=== PATIENT | female | born 1980 | race Hispanic/Latino ===

== ENCOUNTER 2019-12-06 10:19 | Outpatient (RCR) | payer MEDICAID, SELFPAY ==
[2019-11-07 10:32] VITALS: BMI 26.9
== END 2019-12-10 23:59 ==
LOC: NS 10:19
PROVIDERS: Visit Provider Internal Medicine
DX: Z71.3 Dietary counseling and surveillance (principal); E66.3 Overweight
CPT/HCPCS: 97802

== ENCOUNTER 2019-12-27 08:38 | Outpatient (RCR) | payer MEDICAID, SELFPAY | END 2020-01-09 23:59 | LOC: NS 08:38 | PROVIDERS: Visit Provider Internal Medicine | DX: Z71.3 Dietary counseling and surveillance (principal); E66.3 Overweight | CPT/HCPCS: 97803 ==

== ENCOUNTER 2020-01-10 08:59 | Outpatient (RCR) | payer MEDICAID, SELFPAY | END 2020-02-09 23:59 | LOC: NS 08:59 | PROVIDERS: Visit Provider Internal Medicine | DX: Z71.3 Dietary counseling and surveillance (principal); E66.3 Overweight | CPT/HCPCS: 97803 ==

== ENCOUNTER 2020-02-27 08:30 | Outpatient (RCR) | payer MEDICAID, SELFPAY | END 2020-03-11 23:59 | LOC: NS 08:30 | PROVIDERS: Visit Provider Internal Medicine | DX: Z71.3 Dietary counseling and surveillance (principal); E66.3 Overweight | CPT/HCPCS: 97803 ==

== ENCOUNTER 2020-04-03 14:22 | Outpatient (RCR) | payer MEDICAID, SELFPAY | END 2020-04-08 23:59 | LOC: NS 14:22 | PROVIDERS: Visit Provider Internal Medicine | DX: Z71.3 Dietary counseling and surveillance (principal); E66.3 Overweight | CPT/HCPCS: 97803 ==

== ENCOUNTER 2020-05-01 08:30 | Outpatient (RCR) | payer MEDICAID, SELFPAY | END 2020-05-09 23:59 | LOC: NS 08:30 | PROVIDERS: Visit Provider Internal Medicine | DX: Z71.3 Dietary counseling and surveillance (principal); E66.3 Overweight | CPT/HCPCS: 97803 ==

== ENCOUNTER 2020-05-22 08:53 | Outpatient (RCR) | payer MEDICAID, SELFPAY | END 2020-06-08 23:59 | LOC: NS 08:53 | PROVIDERS: Visit Provider Internal Medicine | DX: Z71.3 Dietary counseling and surveillance (principal); E66.3 Overweight; Z68.27 Body mass index [BMI] 27.0-27.9, adult | CPT/HCPCS: 97803 ==

== ENCOUNTER 2020-07-02 13:30 | Outpatient (RCR) | payer MEDICAID, SELFPAY | END 2020-07-09 23:59 | LOC: NS 13:30 | PROVIDERS: Visit Provider Internal Medicine | DX: Z71.3 Dietary counseling and surveillance (principal); E66.3 Overweight; Z68.27 Body mass index [BMI] 27.0-27.9, adult | CPT/HCPCS: 97803 ==

== ENCOUNTER 2020-07-17 09:12 | Outpatient (RCR) | payer MEDICAID, SELFPAY | END 2020-07-17 23:59 | disposition home or self-care (01) | LOC: NS 09:12 | PROVIDERS: Visit Provider Internal Medicine | DX: Z71.3 Dietary counseling and surveillance (principal); E66.3 Overweight; Z68.27 Body mass index [BMI] 27.0-27.9, adult | CPT/HCPCS: 97803 ==

== ENCOUNTER 2020-08-02 22:45 | Emergency (ER) | payer MEDICAID, SELFPAY ==
[2020-08-02 22:46] VITALS: BP 144/85; PULSE 89; RESP 18; TEMP 36.4; O2SAT 99; BMI 27.3
--- NOTE | 2020-08-02 23:57 | EDS_ITS ---
HPI History of Present Illness Chief Complaint: Rash Narrative Narrative: Patient presenting with pruritic rash for the last 5 days. Patient states that initially started on her left forearm and has spread to her right arm the top of her right breast into her back and buttocks. She states she has not been outside in been in contact with any plants. She states that she initially noticed this after grabbing a box while helping her friend move. It is progressed since then. She has no new soaps, dyes, detergents, linens. She is not had any fever or chills. [facility] Medical History Asthma History of UTI Vertigo Home Medications prednisone 10 mg PO DAILY #63 tab 08/02/20 [Rx Last Taken Unknown] Allergy/AdvReac Type Severity Reaction Status Date / Time No Known Allergies Allergy Verified 08/02/20 22:47 Family History Grandmother Cancer Cervical Cancer Surgical History History of breast implant History of tonsillectomy Social History Smoking Status: Never smoker what type of physical activity do you participate in: walking and running frequency: 1-2 times per week ROS ROS ED Constitutional Constitutional ED: Denies chills, fever(s) or subjective Eyes Eyes: Denies blurry vision or change in vision ENT ENT ED: Denies ear pain or rhinorrhea Cardiovascular Cardiovascular: Denies chest pain or palpitations Respiratory/Chest Respiratory/Chest: Denies cough or dyspnea Gastrointestinal Gastrointestinal: Denies abdominal pain or nausea Genitourinary Genitourinary ED: Denies dysuria or hematuria Musculoskeletal Musculoskeletal: Denies arthralgias or myalgias Integumentary Reports rash Neurologic Neurologic: Denies headache(s) or weakness EXAM Physical Exam Const Vital Signs: 08/02/20 22:46 Temperature 97.5 F L Temperature Source Temporal Pulse Rate 89 Respiratory Rate 18 Blood Pressure 144/85 H Blood Pressure Mean 104 Pulse Ox 99 Positive well nourished and well developed General Appearance ED: well developed and NAD HEENT Reports moist mucous membranes Negative for trauma Eyes PERRL and EOMs intact bilaterally Resp normal respiratory effort Cardio regular rate and regular rhythm Skin Skin Narrative: Vesicular weeping rash noted in the proximal humeral region, right upper breast, back and left buttocks. Does not appear to be cellulitic. Rashes: rashes noted MDM MDM MDM Narrative Medical decision making narrative: Patient has vesicular, pruritic rash which is progressed. It is unknown if she came in contact with poison radha. She has no other contact with anything she was to be allergic to. Patient symptoms consistent with contact dermatitis. She will put her on extended prednisone taper. She is given instructions for monitoring her rash. She given return precautions. Patient given discharge. Impression: 1. Contact dermatitis Discharge Plan Triage Chief Complaint: Rash ED Provider: Antony Poe Dx/Rx/DC Orders Instructions: ED Contact Dermatitis Prescriptions: New prednisone 10 mg tablet 10 mg PO DAILY Qty: 63 RF: 0 Primary Care Provider: Richelle Morgan Referrals: Richelle Morgan MD [Primary Care Provider] - Disposition Disposition: Home, Self Care
[2020-08-03] MEDS: predniSONE 20 MG Tablet 60 MG PO
== END 2020-08-03 00:01 | disposition home or self-care (01) ==
PROVIDERS: Emergency Provider Student in an Organized Health Care Education/Training Program; PCP Internal Medicine
DX: L25.9 Unspecified contact dermatitis, unspecified cause (principal); J45.909 Unspecified asthma, uncomplicated; Z87.440 Personal history of urinary (tract) infections
CPT/HCPCS: 99283

== ENCOUNTER 2020-12-13 11:59 | Day surgery (SDC) | payer MEDICAID, SELFPAY ==
[2020-12-13] VITALS (11 sets, daily range): BP systolic 114–164; BP diastolic 68–98; PULSE 59–84; RESP 16; TEMP 36.3–36.8; O2SAT 98–100; BMI 27.0
--- NOTE | 2020-12-13 | EMB_PTH ---
PATIENT: ULIS FORD V LOC: [facility] [place] U#:[id number] AGE/SX: 40/F ROOM: RE12/13/[address]: Dr. Leslie French DO : 1980 BED: DIS: 12/13/2020 SPEC #: [id number] RECD: 12/13/20 15:15 STATUS: YUNIOR RERafael #: [id number] BRAEDEN: 12/13/20 00:[address]: Lesile French DEPT: SURGICAL PATHOLOGY RECD BY: Horacio Solis ENTERED: 12/14/20 09:08 SP TYPE: ENDOM BX/C OT DR: Dr. Richelle Morgan MD Tissues: Endometrium, NOS Procedures: Surgery Specimen Level IV HEADER OPERATION: Hysteroscopy, D & C, Mirena IUD insertion PRE-OP DIAGNOSIS: DUB, thickened endometrium TISSUE SUBMITTED: Endometrial curettings MICROSCOPIC DIAGNOSIS Endometrial curettings: Consistent with exogenous hormone effect with focal area of secretory endometrium. Fragments of benign endocervical mucosa with chronic inflammation and squamous metaplasia. See comment. JACE:chon 12/17/2020 COMMENT Clinical correlation and appropriate follow up are necessary. MICROSCOPIC DESCRIPTION Slides are reviewed. GROSS DESCRIPTION Received in fixative is one container labeled with the patient's name and designated endometrial curettings. The specimen consists of multiple fragments of hemorrhagic soft tissue mixed with polypoid tissue that in aggregate measure 7.5 x 3 x 0.3 cm. The entire specimen is submitted in three cassettes. / JACE:chon 12/14/20 TC:4 CPT: 63180
[2020-12-13] MEDS: Lactated Ringers 1,000 ML 15 ML IV ×2 (12:00→14:42)
[2020-12-13 12:40] LABS: Hematocrit 39.8 % (37-47); Hemoglobin 13.4 g/dL (12.0-15.0); Mean Corp Hgb Conc 33.7 g/dL (32-36); Mean Platelet Vol. 9.7 fl (6.2-12.0); Platelet Count 299 K/mm3 (150-450); RBC Distribution Width CV 13.1 % (11.6-14.6); RBC Distribution Width SD 43.1 fl (35.1-43.9); Red Blood Count 4.47 M/mm3 (4.2-5.4); White Blood Count 7.4 K/mm3 (4.4-11.0)
[2020-12-13 12:41] LABS: Internal QC Validated? YES +Cl - CLEAR BKGD; Pregnancy, Urine Negative Negative
--- NOTE | 2020-12-13 14:29 | PCM.DC ---
Discharge Instructions Diet Discharge Diet: No restrictions Activity Discharge Activity: May Drive (after 24 hours) and May Shower May resume sexual activity in: 1 week (no tampons, intercourse, hot tubs, tub baths, or pools for 1 week) Weight Bearing Status: Weight bearing as tolerated Lifting Restrictions: no restrictions Dressing / Incision Call your doctor if you observe: Fever of 101 or Higher, Inability to urinate, Inability to have a bowel movement, Using more than 1 pad per hour, Shortness of breath, Dizziness, Fainting spells, Swelling in the ankles, Chest pain, Increased palpitations (irregular heartbeat), Calf discomfort and Uncontrolled pain Follow Up Care Please Follow Up With: link When: 1 week which can be virtual or in person. Then in 4-6 weeks for IUD string check in the office Test Results: Test results from this visit will be discussed in further detail at your follow-up appointment, if applicable. Discharge Plan Admission Attending Provider: Leslie French Primary Care Provider: Richelle Morgan Discharge Orders/Prescriptions Prescriptions: No Action norethindrone acetate 5 mg Tablet 5 mg PO BID RF: 0 albuterol sulfate 90 mcg/actuation Hfa Aerosol Inhaler 1 inh INHALATION Q6H PRN (Reason: sob) RF: 0 Referrals / Follow Up: Richelle Morgan MD [Primary Care Provider] - Disposition Disposition (needs filled in before D/C Order can be placed): Home, Self Care
--- NOTE | 2020-12-13 14:31 | PCM.OPRPT ---
Problems Associated Problem List Diagnoses (1) DUB (dysfunctional uterine bleeding): (2) Encounter for IUD removal and reinsertion: (3) Thickened endometrium: Report of Operation Date of Procedure: 12/13/20 Pre-Operative Diagnosis: DUB, thickened endometrium, Paragard IUD in place Post-Operative Diagnosis: As above Surgery/Procedure Performed:: Hysteroscopy, Paragard IUD removal, D&C, Mirena IUD insertion Description of Surgical Findings:: Paragard IUD which was properly positioned in the uterine cavity. The strings of the IUD were folded up over the IUD and within the uterine cavity. The endometrium was thickened appearing. No polyps, fibroids, masses noted within the cavity. Uterus sounded to 10 cm and was palpated to be enlarged. Surgeon: Gillian newspaper delivery counselor: None Type of Anesthesia: MAC Special Medications: None Specimen's removed: Endometrial curettings Drains: None Estimated Blood Loss (mL): < 50 cc Fluids Replaced: See anesthesia record. 0 cc fluid deficit Description of Procedure: Patient was taken to the operating room where MAC anesthesia was found to be adequate. She was prepped and draped in the dorsal lithotomy position using yellowfin stirrups. A weighted speculum was placed in the vagina to expose the cervix. The anterior lip of the cervix was grasped with a single-tooth tenaculum. The cervix was serially dilated to accommodate the hysteroscope. The hysteroscope was advanced to the fundus of the uterus and uterus was distended with normal saline. The Paragard IUD was noted to be in good position with the IUD strings folded up, and the strings were completely within the uterine cavity. A blunt grasper was placed through the operative hysteroscope and the IUD was grasped with a grasper and removed intact without difficulty. The remaining uterine cavity was noted to be normal-appearing, and the endometrium appeared thick. No fibroids or polyps were noted. Hysteroscope was then removed. Sharp curettage was performed for a large amount of tissue. The tissue was sent to the pathologist for review. The uterus sounded to 10 cm. The Mirena IUD device was set in usual fashion and placed to the fundus of the uterus without difficulty. The IUD strings were trimmed to 1 cm in length. The IUD lot number is [id number]. Bleeding was hemostatic. All instruments were removed from the vagina. Vaginal sweep was performed. Instrument sponge counts were correct. The patient was taken to the recovery room in stable condition. Grafts/Implants Used: Mirena IUD Procedure Start Time: 14:14 Procedure Stop Time: 14:27 Complications None Admit VTE Documentation VTE Present on Admission: No VTE Mechan Device Prophylaxis: SCD's VTE Pharm Prophylaxis ordered?: No
== END 2020-12-13 16:12 | disposition home or self-care (01) ==
LOC: SDC 12:00 → AC 12:01
PROVIDERS: PCP Internal Medicine; Referring Provider Obstetrics & Gynecology; Visit Provider Obstetrics & Gynecology
PROC: 0UDB8ZZ Extraction of Endometrium, Via Natural or Artificial Opening Endoscopic (ICD-10-PCS; CPT 58558; principal; 2020-12-13 13:25)
DX: N85.8 Other specified noninflammatory disorders of uterus (principal); Z30.432 Encounter for removal of intrauterine contraceptive device; N93.8 Other specified abnormal uterine and vaginal bleeding; R93.89 Abnormal findings on diagnostic imaging of other specified body structures
CPT/HCPCS: 00952; 58300; 58301; 58558; 81025; 85027; 86850; 86900; 86901; 88305; J7120; J2405